=== PATIENT | male | born 1940 | race Caucasian/White ===

== ENCOUNTER → 2025-06-20 06:53 | Outpatient (REF) | payer OTHER, SELFPAY | LOC: PET 06:53 | PROVIDERS: ATTENDING PHYSICIAN Specialist | DX: C61 Malignant neoplasm of prostate (principal) | CPT/HCPCS: 78815 ==

== ENCOUNTER → 2025-07-10 08:59 | Outpatient (REF) | payer OTHER, SELFPAY | LOC: RAD 08:59 | PROVIDERS: ATTENDING PHYSICIAN Specialist; FAMILY PHYSICIAN Student in an Organized Health Care Education/Training Program | DX: C61 Malignant neoplasm of prostate (principal); R97.21 Rising PSA following treatment for malignant neoplasm of prostate | CPT/HCPCS: 78306; A9503 ==